=== PATIENT | male | born 1990 | race Caucasian/White ===

== ENCOUNTER 2016-10-07 10:26 | Emergency (ER) | payer SELFPAY ==
[~2016-10-07] VITALS: Ht 190.5 cm; Wt 104.0 kg
[~2016-10-07 10:26] MED LIST: AMOXICILLIN500 M1 PO; AMOXICILLIN500 MG PO; BENTYL10 MG PO; CLARITIN10 M3 PO; FLEXERIL5 MG PO; HYCODAN SYRUP480 ML PO; HYDROCODON-ACE1 EAC7 PO; INDOCIN25 MG PO; MOTRIN800 MG PO; MUCINEX600 MG PO; NAPROSYN500 MG PO; NO HOME MED; NORCO 5/3251 TABLET PO; PEN-VEE K,VEET500 MG PO; PERCOCET 5/31 TABLET PO; PREDNISONE10 M1 PO; PREDNISONE20 MG PO; PROAIR HFA8.5 GM IH; TRAMADOL HCL50 MG PO; ULTRAM50 MG PO; ZITHROMAX500 MG PO; ZOFRAN8 MG PO
[2016-10-07 11:52] LABS: HEMATOCRIT 42.7 % (38.0-50.0); MCH 29.9 PG (29.0-34.0); MCHC 33.7 G/DL (30.0-36.0); MCV 88.6 FL (86-99); MEAN PLAT.VOLUME 10.3 uM^3 (9.0-12.4); PLATELET COUNT 145 K/uL (156-360); RBC DIS.WIDTH-CV 12.4 % (11.8-14.6); RBC DIS.WIDTH-SD 40.5 % (39-53); RED BLOOD COUNT 4.82 M/uL (4.00-5.50); WHITE BLOOD COUNT 5.8 K/uL (4.1-10.2)
[2016-10-07 12:04] LABS: CHLORIDE 108 mEq/L (99-109); POTASSIUM 4.4 mEq/L (3.7-5.4); SODIUM 143 mEq/L (136-147)
[2016-10-07 12:06] LABS: GLUCOSE 97 mg/dL (70-99)
[2016-10-07 12:07] LABS: ANION GAP 6 MEQ/L (2-14)
[2016-10-07 12:08] LABS: TOTAL BILIRUBIN 0.7 mg/dL (0.0-1.0)
[2016-10-07 12:09] LABS: ALKALINE PHOSPHATASE 69 IU/L (3-129); SERUM ETHYL ALCOHOL < 10 mg/dL
[2016-10-07 12:10] LABS: GFR ESTIMATE (CALCULATED) > 59 mL/min/
[2016-10-07 12:11] LABS: UREA NITROGEN (BUN) 9 mg/dL (9-23)
[2016-10-07] MEDS ORDERED: ZOFRAN ODT4 MG PO (12:20)
[2016-10-07] MEDS ORDERED: CLONIDINE HCL0.1 MG PO (12:20)
[2016-10-07] MEDS ORDERED: TRAZODONE HCL50 MG PO (12:20)
[2016-10-07 12:41] LABS: ADD MIUA? YES; BILIRUBIN NEGATIVE; BLOOD NEGATIVE; COLOR YELLOW ((YELLOW)); GLUCOSE (STRIP) NEGATIVE; KETONES NEGATIVE; LEUKOCYTES NEGATIVE; NITRITE NEGATIVE; PROTEIN (STRIP) NEGATIVE; SPECIFIC GRAVITY 1.011 (1.000-1.030); UROBILINOGEN 0.2 MG/DL (0.2-1.0)
[2016-10-07 12:51] LABS: ADD MEDTOX COMMENT Y; AMPHETAMINE NEGATIVE (500 ng/mL); BARBITURATES NEGATIVE (200 ng/mL); BENZODIAZEPINES NEGATIVE (150 ng/mL); COCAINE PRESUMPTIVE POSITIVE (150 ng/mL); INTERNAL CONTROLS VALID? YES; METHADONE NEGATIVE (200 ng/mL); METHAMPHETAMINE NEGATIVE (500 ng/mL); OPIATES (MORPHINE) NEGATIVE (100 ng/mL); OXYCODONE NEGATIVE (100 ng/mL); PHENCYCLIDINE NEGATIVE (25 ng/mL); PROPOXYPHENE NEGATIVE (300 ng/mL); THC CANNABINOIDS PRESUMPTIVE POSITIVE (50 ng/mL); TRICYCLIC ANTIDEPRESSANTS NEGATIVE (300 ng/mL)
[2016-10-07 12:55] VITALS: BP 128/70
[2016-10-07 12:55] LABS: AMORPHOUS PHOSPHATE CRYSTALS 2+; BACTERIA 1+ /HPF; CASTS NONE SEEN /LPF; CRYSTALS PRESENT; EPITHELIAL CELLS NONE SEEN /HPF; MUCUS 1+ /LPF; RED BLOOD CELLS NONE SEEN /HPF (0-5); UCUL ADDED? NO; WHITE BLOOD CELLS RARE /HPF (0-5)
[2016-10-07] MEDS ORDERED: ADVIL200 MG PO (20:46)
== END 2016-10-07 12:55 | disposition home or self-care (01) ==
LOC: EME 10:26
PROVIDERS: Emergency Medicine
DX: F11.20 Opioid dependence, uncomplicated (principal); F12.10 Cannabis abuse, uncomplicated; F14.10 Cocaine abuse, uncomplicated; F17.200 Nicotine dependence, unspecified, uncomplicated
CPT/HCPCS: 80053; 81003; 84999; 85027; 90839; 99281; 99284; G0480

== ENCOUNTER 2016-10-07 18:30 | Inpatient (IN) | payer OTHER ==
[~2016-10-07] VITALS: Ht 190.5 cm; Wt 103.1 kg
[~2016-10-07 18:30] MED LIST changes: +CLONIDINE HCL0.1 MG PO; +TRAZODONE HCL50 MG PO; +ZOFRAN ODT4 MG PO
[2016-10-07 19:08] LABS: HEMATOCRIT 43.2 % (38.0-50.0); MCH 29.7 PG (29.0-34.0); MCHC 33.8 G/DL (30.0-36.0); MEAN PLAT.VOLUME 9.9 uM^3 (9.0-12.4); PLATELET COUNT 155 K/uL (156-360); RBC DIS.WIDTH-CV 12.5 % (11.8-14.6); RBC DIS.WIDTH-SD 40.1 % (39-53); RED BLOOD COUNT 4.91 M/uL (4.00-5.50); WHITE BLOOD COUNT 7.5 K/uL (4.1-10.2)
[2016-10-07 19:17] LABS: CHLORIDE 106 mEq/L (99-109); POTASSIUM 3.8 mEq/L (3.7-5.4); SODIUM 140 mEq/L (136-147)
[2016-10-07 19:20] LABS: GLUCOSE 92 mg/dL (70-99)
[2016-10-07 19:21] LABS: ANION GAP 7 MEQ/L (2-14); TOTAL BILIRUBIN 0.7 mg/dL (0.0-1.0)
[2016-10-07 19:22] LABS: SERUM ETHYL ALCOHOL < 10 mg/dL
[2016-10-07 19:23] LABS: GFR ESTIMATE (CALCULATED) > 59 mL/min/
[2016-10-07 19:24] LABS: ALKALINE PHOSPHATASE 70 IU/L (3-129)
[2016-10-07 19:25] LABS: UREA NITROGEN (BUN) 8 mg/dL (9-23)
[2016-10-07 19:27] LABS: SALICYLATE < 5.0 MG/DL (15-30)
[2016-10-07] MEDS ORDERED: ADVIL200 MG PO (20:46)
[2016-10-07 21:09] LABS: ADD MIUA? YES; BILIRUBIN NEGATIVE; BLOOD NEGATIVE; COLOR YELLOW ((YELLOW)); GLUCOSE (STRIP) NEGATIVE; KETONES NEGATIVE; LEUKOCYTES NEGATIVE; NITRITE NEGATIVE; PROTEIN (STRIP) NEGATIVE; SPECIFIC GRAVITY 1.011 (1.000-1.030); UROBILINOGEN 0.2 MG/DL (0.2-1.0)
[2016-10-07 21:11] LABS: BACTERIA RARE /HPF; EPITHELIAL CELLS NONE SEEN /HPF; MUCUS NONE SEEN /LPF; RED BLOOD CELLS 0-5 /HPF (0-5); WHITE BLOOD CELLS 0-5 /HPF (0-5)
[2016-10-07 21:19] LABS: AMPHETAMINE NEGATIVE (500 ng/mL); BARBITURATES NEGATIVE (200 ng/mL); BENZODIAZEPINES NEGATIVE (150 ng/mL); COCAINE PRESUMPTIVE POSITIVE (150 ng/mL); INTERNAL CONTROLS VALID? YES; METHADONE NEGATIVE (200 ng/mL); METHAMPHETAMINE NEGATIVE (500 ng/mL); OPIATES (MORPHINE) PRESUMPTIVE POSITIVE (100 ng/mL); OXYCODONE NEGATIVE (100 ng/mL); PHENCYCLIDINE NEGATIVE (25 ng/mL); PROPOXYPHENE NEGATIVE (300 ng/mL); THC CANNABINOIDS PRESUMPTIVE POSITIVE (50 ng/mL); TRICYCLIC ANTIDEPRESSANTS NEGATIVE (300 ng/mL)
[2016-10-07 21:20] LABS: ADD MEDTOX COMMENT Y
[2016-10-08 14:11] VITALS: BP 116/64
[2016-10-08 15:26] VITALS: BP 136/72
[2016-10-09 07:33] VITALS: BP 123/72
[2016-10-09 15:32] VITALS: BP 119/81
[2016-10-10 07:41] VITALS: BP 108/67
[2016-10-10] MEDS ORDERED: ROPINIROLE HCL2 MG PO (09:20)
== END 2016-10-10 10:44 | disposition home or self-care (01) | DRG 897 ==
LOC: EME 18:30 → 1WEST 10-08 12:37 → EDOF 10-08 12:37 → 1WEST 10-08 12:37 → ENRESERV 10-08 13:25 → 1WEST 10-08 13:34
PROVIDERS: Physician Assistant
PROC: HZ2ZZZZ Detoxification Services for Substance Abuse Treatment (ICD-10-PCS; principal; 2016-10-08)
DX: F11.23 Opioid dependence with withdrawal (principal); R45.851 Suicidal ideations; F43.20 Adjustment disorder, unspecified; G25.81 Restless legs syndrome; F12.90 Cannabis use, unspecified, uncomplicated; F14.10 Cocaine abuse, uncomplicated; F17.200 Nicotine dependence, unspecified, uncomplicated
CPT/HCPCS: 80053; 81003; 84999; 85027; 90839; 99281; 99284; 99285; G0480; J0572; J2060; Q0177

== ENCOUNTER 2017-06-10 09:11 | Emergency (ER) | payer OTHER ==
[~2017-06-10] VITALS: Ht 190.5 cm; Wt 112.4 kg
[~2017-06-10 09:11] MED LIST changes: +ADVIL200 MG PO; +ROPINIROLE HCL2 MG PO
[2017-06-10 09:53] LABS: SOURCE URINE
[2017-06-10 10:02] LABS: APPEARANCE CLEAR ((CLEAR)); BILIRUBIN NEGATIVE; BLOOD NEGATIVE; COLOR YELLOW ((YELLOW)); GLUCOSE (STRIP) NEGATIVE; KETONES NEGATIVE; LEUKOCYTES NEGATIVE; NITRITE NEGATIVE; PROTEIN (STRIP) NEGATIVE; SPECIFIC GRAVITY 1.011 (1.000-1.030); UCUL ADDED? NO
[2017-06-10 10:20] LABS: HEMATOCRIT 38.4 % (38.0-50.0); HEMOGLOBIN 13.2 G/DL (12.5-16.6); MCH 29.9 PG (29.0-34.0); MCHC 34.4 G/DL (30.0-36.0); MCV 86.9 FL (86-99); PLATELET COUNT 162 K/uL (156-360); RBC DIS.WIDTH-CV 12.5 % (11.8-14.6); RED BLOOD COUNT 4.42 M/uL (4.00-5.50); WHITE BLOOD COUNT 5.8 K/uL (4.1-10.2)
[2017-06-10 10:47] VITALS: BP 138/82
[2017-06-12 13:28] LABS: CHLAMYDIA TRACHOMATIS NEGATIVE; NEISSERIA GONORRHOEAE NEGATIVE
== END 2017-06-10 10:48 | disposition home or self-care (01) ==
LOC: EME 09:11
PROVIDERS: Emergency Medicine
DX: K62.5 Hemorrhage of anus and rectum (principal); Z20.2 Contact with and (suspected) exposure to infections with a predominantly sexual mode of transmission; F17.200 Nicotine dependence, unspecified, uncomplicated
CPT/HCPCS: 81003; 85027; 87491; 87591; 99281; 99284